=== PATIENT | female | born 1960 | race Caucasian/White ===

== ENCOUNTER → 2017-08-13 | Outpatient (REF) | payer SELFPAY ==
[2017-08-13 13:31] LABS: VITAMIN B12 LEVEL 443 PG/ML (247-911)
== END ==
LOC: M LAB REF 12:18
DX: D51.9 Vitamin B12 deficiency anemia, unspecified (principal)
CPT/HCPCS: 82607

== ENCOUNTER → 2018-07-31 | Outpatient (REF) | payer SELFPAY ==
[~2018-07-31] MED LIST: /PRAV20TA PO; ACET50TA PO; CIPR500T89 PO; COLA50CA3 PO; FLAG500T PO; LIPI20TA PO; MULTCAP PO; NORCOTAB PO; PERCOCET PO; SIMV20TA2 PO; TYLE167L PO; TYLE325T5 PO; VITA10002 PO; VITA10004 PO; VITA30004 PO; levothroid PO
[2018-07-31 13:07] LABS: C REACTIVE PROTEIN QUANTITATIV 0.3 MG/DL (0.00-0.30); URIC ACID 4.2 MG/DL (2.6-6.0)
== END ==
LOC: M LAB REF 12:06
PROVIDERS: ATTEND Nurse Practitioner Family
DX: M25.571 Pain in right ankle and joints of right foot (principal)

== ENCOUNTER 2020-09-22 15:16 | Inpatient (IN) | payer MEDICAID, SELFPAY ==
[~2020-09-22] VITALS: Ht 165.1 cm; Wt 109.3 kg
[~2020-09-22 15:16] MED LIST changes: -/PRAV20TA PO; -ACET50TA PO; +CYAN100049 PO; +MAPA500T17 PO; +PRAV1TAB39 PO; -VITA10002 PO
[2020-09-22] MEDS ORDERED: ACETAMINOPHEN 500 MG TAB PO ONE (16:50)
[2020-09-22] MEDS ORDERED: NS 1,000 ML IV ONE ×2 (16:50→21:55)
--- NOTE | 2020-09-22 17:19 | REP ---
INDICATION: Abdominal Pain. COMPARISON: 11/04/2013 the latest prior a portable exam FINDINGS: The superior mediastinal structures are midline. The cardiac silhouette is unremarkable in size, shape, and position. The diaphragmatic surfaces of the lungs are regular, and the costophrenic angles are clear. The pulmonary nieto are clear. The imaged osseous structures are intact. IMPRESSION: There is no acute cardiopulmonary disease. <Electronically signed by Markus Taylor > 09/22/20 [id number]
[2020-09-22 18:19] LABS: BASO # 0.1 10^3/uL (0.0-0.2); BASO % 0.4 % (0.0-1.0); EOS % 0.2 % (0.0-3.0); HEMATOCRIT 44.8 % (36.0-47.0); HEMOGLOBIN 14.4 g/dl (12.0-15.5); LYMPH # 1.3 10^3/uL (1.5-5.0); MEAN CORPUSCULAR HEMOGLOBIN 28.3 pg (27.0-33.0); MEAN CORPUSCULAR HGB CONC 32.1 g/dl (32.0-36.5); MONO # 1.4 10^3/uL (0.0-0.8); MONO % 5.6 % (2.0-8.0); NEUTROPHILS % 87.8 % (36.0-66.0); PLATELET COUNT, AUTOMATED 190 10^3/uL (150-450); RED BLOOD COUNT 5.09 10^6/uL (4.00-5.40); WHITE BLOOD COUNT 25.1 10^3/uL (4.0-10.0)
[2020-09-22 18:30] LABS: INR 1.06; PARTIAL THROMBOPLASTIN TIME 29.1 SECONDS (24.2-38.5)
[2020-09-22 18:33] LABS: D-DIMER QUANT 1801.26 ng/ml (<500)
[2020-09-22 18:53] LABS: ALBUMIN 3.3 GM/DL (3.2-5.2); ALT/SGPT 19 U/L (12-78); BILIRUBIN,DIRECT 0.4 MG/DL (0.0-0.2); BILIRUBIN,TOTAL 0.9 MG/DL (0.2-1.0); CK-MB VALUE MASS < 1.0 NG/ML (<3.6); CPK CREATINE PHOSPHOKINASE 124 U/L (26-192); FREE T4 1.82 NG/DL (0.76-1.46); LIPASE 47 U/L (73-393); MB/CK RELATIVE INDEX 0.81 (< OR =4); NT-PRO BNP 362 PG/ML (<125); THYROID STIMULATING HORMONE 0.448 uIU/ML (0.358-3.740); TOTAL PROTEIN 7.7 GM/DL (6.4-8.2); TROPONIN I < 0.02 NG/ML (< 0.10)
[2020-09-22] MEDS ORDERED: CIPROFLOXACIN 400 MG in IV 1 EA IV ONE (19:10)
[2020-09-22 19:34] LABS: BLOOD UREA NITROGEN 33 MG/DL (7-18); CALCIUM LEVEL 8.9 MG/DL (8.8-10.2); CARBON DIOXIDE LEVEL 27 MEQ/L (21-32); CHLORIDE LEVEL 101 MEQ/L (98-107); CREATININE FOR GFR 1.66 MG/DL (0.55-1.30); GLOMERULAR FILTRATION RATE 33.4 (>45); GLUCOSE, FASTING 143 MG/DL (70-100); POTASSIUM SERUM 4.1 MEQ/L (3.5-5.1); SODIUM LEVEL 136 MEQ/L (136-145)
[2020-09-22 20:18] LABS: RSV AMPLIFICATION NEGATIVE (NEGATIVE)
[2020-09-22] MEDS ORDERED: diphenhydrAMINE 50MG/ML VIAL (J1200) IV STA (20:25)
[2020-09-22] MEDS ORDERED: GLUCAGON INJ 1MG VIAL SC PRN (21:55)
[2020-09-22] MEDS ORDERED: MOM 30ML SUSPENSION UDC PO PRN (21:55)
[2020-09-22] MEDS ORDERED: cefTRIAXone SOD 1 GM in D5W MINI-BAG PLUS 50 ML IV ONE (21:55)
[2020-09-22] MEDS ORDERED: DEXTROSE 50% 50 ML SYRINGE IV PRN (21:55)
[2020-09-22] MEDS ORDERED: GLUCOSE 4GM CHEW TABLET PO PRN (21:55)
[2020-09-22] MEDS ORDERED: MAALOX 30 ML SUSP *UDC PO PRN (21:55)
[2020-09-22] MEDS ORDERED: MORPHINE 2 MG/ML 1ML VIAL (J2270) IV PRN (21:55)
[2020-09-22] MEDS ORDERED: ENOXAPARIN 40MG/0.4ML SYRINGE (J1650 PER 10MG) SC SCH (21:55)
--- NOTE | 2020-09-22 21:55 | REPVR ---
PROCEDURE INFORMATION: Exam: CT Abdomen And Pelvis Without Contrast Exam date and time: 09/22/2020 9:07 PM Age: 59 years old Clinical indication: Other: Hematuria TECHNIQUE: Imaging protocol: Computed tomography of the abdomen and pelvis without contrast. Radiation optimization: All CT scans at this facility use at least one of these dose optimization techniques: automated exposure control; mA and/or kV adjustment per patient size (includes targeted exams where dose is matched to clinical indication); or iterative reconstruction. COMPARISON: CT Abdomen with contrast 01/01/2014 2:30 PM FINDINGS: Lungs: Scattered subcentimeter noncalcified pulmonary parenchymal nodules measure up to 5 mm in the right lower lobe, stable. No follow-up suggested according to Fleischner guidelines. Liver: Examination of the liver demonstrates a lobular surface contour, and enlargement of the left and caudate lobes, findings consistent with cirrhosis. Gallbladder and bile ducts: There has been a cholecystectomy. There has been a cholecystectomy. Pancreas: Normal. No ductal dilation. Spleen: Top normal splenic size. Adrenal glands: Normal. No mass. Kidneys and ureters: Left perinephric and proximal periureteral inflammatory changes. Findings may indicate the presence of pyelonephritis or changes secondary to recent passage of a calculus. Mild left hydroureteronephrosis without definite obstructing calculus demonstrated. A small punctate calcification appears to be adjacent to the distal left ureter rather than within the ureteral lumen. Stomach and bowel: Unremarkable. No obstruction. No mucosal thickening. Appendix: No evidence of appendicitis. Intraperitoneal space: Unremarkable. No free air. No significant fluid collection. Vasculature: The aortoiliac vessels demonstrate mild atherosclerotic calcification. Lymph nodes: Unremarkable. No enlarged lymph nodes. Urinary bladder: Unremarkable as visualized. Reproductive: Unremarkable as visualized. Bones/joints: Moderate central spinal stenosis L2-L3, L3-L4 and moderate to severe central spinal stenosis L4-L5. The spine demonstrates moderate degenerative changes. Soft tissues: Unremarkable. IMPRESSION: 1. Examination of the liver demonstrates a lobular surface contour, and enlargement of the left and caudate lobes, findings consistent with cirrhosis. 2. There has been a cholecystectomy. 3. Left perinephric and proximal periureteral inflammatory changes. Findings may indicate the presence of pyelonephritis or changes secondary to recent passage of a calculus. Mild left hydroureteronephrosis without definite obstructing calculus demonstrated. A small punctate calcification appears to be adjacent to the distal left ureter rather than within the ureteral lumen. 4. There has been a cholecystectomy. Electronically signed by: Jay Frye On 09/22/2020 21:55:13 PM
[2020-09-22] MEDS ORDERED: SYNT100T PO (22:37)
[2020-09-22] MEDS ORDERED: SYNT88TA2 PO (22:37)
[2020-09-22] MEDS ORDERED: D 50CAP3 PO (22:37)
[2020-09-22] MEDS ORDERED: METF-839 PO (22:37)
[2020-09-22] MEDS ORDERED: CLON0.2T PO (22:37)
[2020-09-22] MEDS ORDERED: ATOR40TA75 PO (22:37)
--- NOTE | 2020-09-22 23:06 | HPEPDOC ---
[facility] Medical History & Physical Date of Admission Sep 22, 2020 Date of Service: Sep 22, 2020 Attending Physician: KAREN DICKINSON MD History and Physical CHIEF COMPLAINT: [59 y/o female c/o hematuria, sob x1 week] HISTORY OF PRESENT ILLNESS: [This is a 59 y/o female with a pmh of hld, gerd, h ypothyroidism, depression and niddm2 who presents to the ED with a cc of hematuria and increasing sob x 1 week. Patient states that she has had hematuria on and off for some time now but it would typically go away in a day or two. Patient states that this time, her hematuria is persisting and she is feeling very ill along with it. Patient is complaining of associated fever, chills, nausea, poor appetite, low back pain. Patient states that she sees luis red blood in the toilet and when she wipes after urinating. Patient states that she thought her symptoms were due to a cyst so she did not think much of them until now. Patient denies dysuria, vomiting, bloody or dark stool, constipation, jerman rrhea, abdominal pain. Patient admits to associated increasing shortness of breath. Patient states that this is worse with activity and states that if she were to stay seated or laying, that she would not become short of breath. Patient admits to one episode of associated chest pain that lasted a few minutes and spontaneously resolved yesterday. Patient is current pack per day smoker. Patient admits to associated cough with sputum, however does not know what her sputum looks like. Patient states that she was not worried about these symptoms, and just thought they were from her smoking. Patient denies hemoptysis, persistent chest pain, syncope, lightheadedness, dizziness. ] PAST MEDICAL HISTORY: 1. [See HPI PAST SURGICAL HISTORY: 1. [Tonsillectomy]. 2. [Cholecystectomy]. 3. [Colonoscopy 4. Tubal ligation]. SOCIAL HISTORY: Tobacco use:[Current pack per day smoker, approx 36 pack year hx] ETOH: [Denies] Illicit drug use: [Denies] FAMILY HISTORY: Reviewed with patient - none pertinent ALLERGIES: Please see below. REVIEW OF SYSTEMS: CONSTITUTIONAL: [See HPI]. HEENT: [Denies URI sx]. CARDIOVASCULAR: [See HPI]. RESPIRATORY: [See HPI]. GASTROINTESTINAL: [See HPI]. GENITOURINARY: [See HPI]. SKIN: [Denies rash]. MUSCULOSKELETAL: [Denies acute joint pain]. NEUROLOGICAL: [Denies paresthesias]. ENDOCRINE: [Hx of DM]. HEMATOLOGIC/LYMPHATIC: [Denies easy bruising]. HOME MEDICATIONS: Please see below. PHYSICAL EXAMINATION: VITAL SIGNS: See HPI GENERAL APPEARANCE: [This is an obese 59 year old female. She is lying in bed and appears uncomfortable. ]. HEENT: [No mass or lesion. EOMI. No scleral icterus or conjunctival erythema. Nares patent. oral mucosa dry without erythema.]. CARDIOVASCULAR: [Tachy rate, regular rhythm. No murmurs, rubs or gallops]. LUNGS: [Clear to auscultation b/l.]. ABDOMEN: [Soft, non-tender]. MUSCULOSKELETAL: [No joint deformity]. EXTREMITIES: [No peripheral edema noted. no overlying skin changes. Pulses intact.]. NEUROLOGICAL: [Speech clear. A+Ox3. No focal deficits.]. PSYCHIATRIC: [Mood and affect appear appropriate.]. LABORATORY DATA: See below. IMAGING: [Chest x-ray: FINDINGS: The superior mediastinal structures are midline. The cardiac silhouette is unremarkable in size, shape, and position. The diaphragmatic surfaces of the lungs are regular, and the costophrenic angles are clear. The pulmonary nieto are clear. The imaged osseous structures are intact. IMPRESSION: There is no acute cardiopulmonary disease. CT abd/pelvis: FINDINGS: Lungs: Scattered subcentimeter noncalcified pulmonary parenchymal nodules measure up to 5 mm in the right lower lobe, stable. No follow-up suggested according to Fleischner guidelines. Liver: Examination of the liver demonstrates a lobular surface contour, and enlargement of the left and caudate lobes, findings consistent with cirrhosis. Gallbladder and bile ducts: There has been a cholecystectomy. There has been a cholecystectomy. Pancreas: Normal. No ductal dilation. Spleen: Top normal splenic size. Adrenal glands: Normal. No mass. Kidneys and ureters: Left perinephric and proximal periureteral inflammatory changes. Findings may indicate the presence of pyelonephritis or changes secondary to recent passage of a calculus. Mild left hydroureteronephrosis without definite obstructing calculus demonstrated. A small punctate calcification appears to be adjacent to the distal left ureter rather than within the ureteral lumen. Stomach and bowel: Unremarkable. No obstruction. No mucosal thickening. Appendix: No evidence of appendicitis. Intraperitoneal space: Unremarkable. No free air. No significant fluid collection. Vasculature: The aortoiliac vessels demonstrate mild atherosclerotic calcification. Lymph nodes: Unremarkable. No enlarged lymph nodes. Urinary bladder: Unremarkable as visualized. Reproductive: Unremarkable as visualized. Bones/joints: Moderate central spinal stenosis L2-L3, L3-L4 and moderate to severe central spinal stenosis L4-L5. The spine demonstrates moderate degenerative changes. Soft tissues: Unremarkable. IMPRESSION: 1. Examination of the liver demonstrates a lobular surface contour, and enlargement of the left and caudate lobes, findings consistent with cirrhosis. 2. There has been a cholecystectomy. 3. Left perinephric and proximal periureteral inflammatory changes. Findings may indicate the presence of pyelonephritis or changes secondary to recent passage of a calculus. Mild left hydroureteronephrosis without definite obstructing calculus demonstrated. A small punctate calcification appears to be adjacent to the distal left ureter rather than within the ureteral lumen. 4. There has been a cholecystectomy. ] MICROBIOLOGY: Please see below. ASSESSMENT: [This is a 59 y/o female with a pmh of hld, gerd, hypothyroidism, depression and niddm2 who presents to the ED with complaints of hematuria, back pain and sob. Upon workup in the ED, patient found to have madeline with cr of 1.66 and bun of 33, pyuria and hematuria on ua, wbc of 25.[address] scan as stated above. Patient also found to have elevated d-dimer, raising some suspi cion for PE.]. . PLAN: 1. [Pyelo - CT scan showed some hydroureteronephrosis with no obvious blockage. There is a calcification present but does not seem to be obstructing. CT is suggestive of possible recent passage of stone, which would explain patient's hematuria prior to infection setting in. - Patient meets sepsis criteria with fever, tachycardia, leukocytosis, present source of infection - Patient received 1 dose of cipro and 1L ns bolus in the ED - Will begin maintenance fluids, meropenem 1g IV q12h - Will begin morphine 2mg iv for severe pain, tylenol for all other pain and fever - Dr. Westbrook, urology, was consulted and discussed the case with him. Suggests fluids, iv abx, keep npo overnight in case she needs a stent in the morning if symptoms do not improve and/or luis obstruction occurs - Admit to med surg for iv abx, fluids, pain control 2. MADELINE - Patient's cr is 1.66 from a baseline of under 1. Potentially pre-renal due to poor intake vs. post-renal due to recent obstruction or mixed picture - Fluids will be given, as stated - Will repeat bmp in the morning 3. SOB - According to well's score, patient is low risk group for pe. However, patient had elevated d-dimer in the setting of chronic smoking, shortness of breath, tachycardia, back pain. - Patient saturating well on room air - Will trend d-dimer - Day team should consider cta once kidney function improves - Anticoagulation will be held off for now due to hematuria and possible surgical intervention 4. DM - sliding scale insulin, hypoglycemic protocol 5. Hypothyroidism - continue levothyroxine 6. hyperlipidemia - continue statin 7. DVT prophylaxis - teds and scds]. Vital Signs Vital Signs Date Time Temp Pulse Resp B/P (MAP) Pulse Ox O2 Delivery O2 Flow Rate FiO2 09/22/20 19:00 100.7 09/22/20 17:00 09/22/20 15:17 115 20 94 Room Air Laboratory Data Labs 24H Laboratory Tests 2 09/22/20 17:12: Urine Color MIMA, Urine Appearance CLOUDYH, Urine pH 6.0, Urine Specific [place] 1.012, Urine Protein 2+H, Urine Glucose (UA) NEGATIVE, Urine Ketones NEGATIVE, Urine Blood 3+H, Urine Nitrite NEGATIVE, Urine Bilirubin NEGATIVE, Urine Urobilinogen 0.2, Urine Leukocyte Esterase 2+H, Urine WBC (Auto) TNTCH, Urine RBC (Auto) TNTCH, Urine Hyaline Casts (Auto) 0, Urine Bacteria (Auto) 2+H, Urine Squamous Epithelial Cells 0, Urine Sperm (Auto) 09/22/20 17:15: Prothrombin Time 14.0, Prothromb Time International Ratio 1.06, Activated Partial Thromboplast Time 29.1, D-Dimer, Quantitative 1801.26H 09/22/20 17:16: Immature Granulocyte % (Auto) 1.0, Neutrophils (%) (Auto) 87.8H, Lymphocytes (%) (Auto) 5.0L, Monocytes (%) (Auto) 5.6, Eosinophils (%) (Auto) 0.2, Basophils (%) (Auto) 0.4, Neutrophils # (Auto) 22.0H, Lymphocytes # (Auto) 1.3L, Monocytes # (Auto) 1.4H, Eosinophils # (Auto) 0.0, Basophils # (Auto) 0.1, Nucleated Red Blood Cells % (auto) 0.0, Anion Gap 8, Glomerular Filtration Rate 33.4L, Lactic Acid Level 1.6, Calcium Level 8.9, Total Bilirubin 0.9, Direct Bilirubin 0.4H, Aspartate Amino Transf (AST/SGOT) 17, Alanine Aminotransferase (ALT/SGPT) 19, Alkaline Phosphatase 119H, Total Creatine Kinase 124, Creatine Kinase MB < 1.0, Creatine Kinase MB Relative Index 0.81, Troponin I < 0.02, AM-Url-M-Type Natriuretic Peptide 362H, Total Protein 7.7, Albumin 3.3, Albumin/Globulin Ratio 0.8L, Lipase 47L, Thyroid Stimulating Hormone (TSH) 0.448, Free Thyroxine 1.82H 09/22/20 19:27: Coronavirus (COVID-19)(PCR) NEGATIVE, Influenza Type A (RT-PCR) NEGATIVE, Influenza Type B (RT-PCR) NEGATIVE, Respiratory Syncytial Virus (PCR) NEGATIVE 09/22/20 21:46: CBC/BMP Laboratory Tests 09/22/20 17:16 Microbiology Microbiology 09/22/20 Wet Prep - Final, Complete 09/22/20 Blood Culture, Received Pending 09/22/20 Blood Culture, Received Pending 09/22/20 Urine Culture, Received Pending Home Medications Scheduled Atorvastatin Calcium (Atorvastatin Calcium) 40 Mg Tablet, 40 MG PO DAILY Cholecalciferol (Vitamin D3) (Vitamin D3) 125 Mcg Capsule, 125 MCG PO DAILY Clonidine HCl (Clonidine HCl) 0.2 Mg Tablet, 0.2 MG PO BID Levothyroxine Sodium (Synthroid) 88 Mcg Tablet, 88 MCG PO DAILY TAKES WITH 100MCG FOR 188MCG TOTAL Levothyroxine Sodium (Synthroid) 100 Mcg Tablet, 100 MCG PO DAILY TAKES WIHT 88MCG FOR 188MCG TOTAL Metformin HCl (Metformin HCl) 500 Mg Tablet, 500 MG PO BID Allergies Coded Allergies: Penicillins (Verified Allergy, Severe, hives, 09/22/20) A-FIB/CHADSVASC A-FIB History Current/History of A-Fib/PAF?: No SADAF GARCIA Sep 22, 2020 23:06
--- NOTE | 2020-09-22 23:13 | ECGEPIP ---
[facility] - ED Test Date: 2020-09-22 Pat Name: SHIRA SINGH Department: Room: - Gender: Female [employer] Supervisor: HILARY : 1960 Requested By: CAS REEVES PA-C Order Number: [id number] Reading MD: Sukhjinder Hill Measurements Intervals [place] Rate: 101 P: 67 [place]: 150 QRS: -49 QRSD: 98 T: 95 QT: 340 QTc: 440 Interpretive Statements Sinus tachycardia Possible Left atrial enlargement Left anterior fascicular block INCOMPLETE RIGHT BUNDLE BRANCH BLOCK Left ventricular hypertrophy with repolarization abnormality ( R in aVL , Lloyd product ) NO PRIORS FOR COMPARISON Electronically Signed on 09-22-2020 23:13:21 EDT by Sukhjinder Hill
--- NOTE | 2020-09-22 23:25 | ECGEPIP ---
[facility] - ED Test Date: 2020-09-22 Pat Name: SHIRA SINGH Department: Room: - Gender: Female Computer Trainer: ALVAREZ : 1960 Requested By: FRANCA Genao Order Number: [id number] Reading MD: Sukhjinder Hill Measurements Intervals [place] Rate: 86 P: 65 GA: 154 QRS: -47 QRSD: 100 T: 83 QT: 398 QTc: 476 Interpretive Statements Normal sinus rhythm Incomplete right bundle branch block Left anterior fascicular block Left ventricular hypertrophy with repolarization abnormality ( R in aVL , Lloyd product , Romhilt-Lock ) SIMILAR TO PRIOR ON SAME DATE Electronically Signed on 09-22-2020 23:24:43 EDT by Sukhjinder Hill
[2020-09-22] MEDS: HumaLOG INSULIN (NovoLOG) PER UNIT SC SCH (23:30)
[2020-09-22] MEDS: ACETAMINOPHEN TAB 650MG DOSE (2X325MG) PO PRN (23:35)
[2020-09-22 23:46] VITALS: BP 145/81
[2020-09-23] MEDS ORDERED: MEROPENEM INJ 1 GM in IV 1 EA IV SCH ×2
[2020-09-23] MEDS: cloNIDine 0.2 MG TAB PO SCH ×3 (00:37→21:44)
[2020-09-23] MEDS: ACETAMINOPHEN TAB 650MG DOSE (2X325MG) PO PRN ×4 (03:44→21:53)
[2020-09-23] MEDS: LEVOTHYROXINE 100MCG TABLET (0.1MG) PO SCH (05:51)
[2020-09-23] MEDS: LEVOTHYROXINE 88MCG TABLET (0.088 MG) PO SCH (05:51)
[2020-09-23 06:00] VITALS: BP 115/68
[2020-09-23 06:28] LABS: HEMATOCRIT 38.4 % (36.0-47.0); MEAN CORPUSCULAR HEMOGLOBIN 28.2 pg (27.0-33.0); MEAN CORPUSCULAR HGB CONC 31.8 g/dl (32.0-36.5); MEAN CORPUSCULAR VOLUME 88.7 fl (80.0-96.0); PLATELET COUNT, AUTOMATED 160 10^3/uL (150-450); RED BLOOD COUNT 4.33 10^6/uL (4.00-5.40); WHITE BLOOD COUNT 20.4 10^3/uL (4.0-10.0)
[2020-09-23 06:38] LABS: HEMOGLOBIN 12.2 g/dl (12.0-15.5)
[2020-09-23 06:54] LABS: CALCIUM LEVEL 9.4 MG/DL (8.8-10.2); CREATININE FOR GFR 1.24 MG/DL (0.55-1.30); GLOMERULAR FILTRATION RATE 46.8 (>45); POTASSIUM SERUM 3.7 MEQ/L (3.5-5.1)
[2020-09-23] MEDS: DOCUSATE SODIUM 100MG CAPSULE PO SCH ×2 (08:15→21:41)
[2020-09-23] MEDS: ATORVASTATIN 20 MG TAB PO SCH (08:15)
[2020-09-23] MEDS: HumaLOG INSULIN (NovoLOG) PER UNIT SC SCH ×4 (08:16→21:00)
[2020-09-23 09:46] VITALS: BP 114/55
[2020-09-23 09:51] VITALS: BP 114/55
--- NOTE | 2020-09-23 10:58 | SMCUROLCON ---
Urology Consultation General Date of Consultation 09/23/20 Reason For Consultation This patient is seen for Chest Pain,Pyelonephritis. History of Present Illness This is a 59 y/o F w/ a PMH significant for HL, GERD, hypothyroidism, and DM2, admitted to the hospital for possible L pyelonephritis. The patient notes that she has been having worsening L flank pain, fevers, and gross hematuria for the past week. She denies dysuria or frequency. She feels that she has been emptying well. She denies blood clots. On presentation here, she has had fevers up to [address] A/P which I reviewed was notable for mild L perinephric stranding but I did not appreciate any hydro or ureteral s tones. Her UA was notable for TNTC WBCs and RBCs as well as 2+ bacteria. The patient notes that she does feel a little better since IV abx were started. Of note, the patient has had intermittent and milder gross hematuria for the last 6 months. When she had hematuria previously it was painless. She is a smoker and has smoked at least a pack/day for 40 yrs. Past Medical History Medical History see HPI Surgical Hstory tonsillectomy, multiple abd hernia repairs, D&C w/ tubal ligation Medications Current Medications Current Medications Medications (Trade) Dose Ordered Sig/Cameron Route PRN Reason Start Time Stop Time Status Last Admin Dose Admin Acetaminophen (Tylenol Tab) 650 mg Q4H PRN PO PAIN OR FEVER 09/22/20 21:55 09/23/20 08:34 Al Hydrox/Mg Hydrox/Simethicone (Mylanta) 30 ml DAILY PRN PO DYSPEPSIA 09/22/20 21:55 Atorvastatin Calcium (Lipitor) 40 mg DAILY PO 09/23/20 09:00 09/23/20 08:15 Clonidine HCl (Catapres) 0.2 mg BID PO 09/22/20 21:00 09/23/20 08:15 Dextrose (Dextrose 50%) 25 ml ASDIRECTED PRN IV SEE LABEL COMMENTS 09/22/20 21:55 Diphenhydramine HCl (Benadryl) 25 mg STAT STAT IV 09/22/20 20:25 09/22/20 20:26 DC 09/22/20 20:45 Docusate Sodium (Colace) 100 mg BID PO 09/23/20 09:00 09/23/20 08:15 Enoxaparin Sodium (Lovenox) 40 mg Q12H SC 09/22/20 21:55 UNV Glucagon (Glucagon) 1 mg ASDIRECTED PRN SC SEE LABEL COMMENTS 09/22/20 21:55 Glucose (Glucose) 16 GM ASDIRECTED PRN PO SEE LABEL COMMENTS 09/22/20 21:55 Home Med (Med Rec Complete!) ASDIRECTED XX 09/22/20 22:40 09/22/20 22:47 DC Insulin Human Lispro (HumaLOG INSULIN) SEE PROTOCOL TABLE AC SC 09/23/20 07:30 09/23/20 08:16 Insulin Human Lispro (HumaLOG INSULIN) SEE PROTOCOL TABLE QHS SC 09/22/20 21:00 Levothyroxine Sodium (Synthroid) 88 mcg DAILY@0600 PO 09/23/20 06:00 09/23/20 05:51 Levothyroxine Sodium (Synthroid) 100 mcg DAILY@0600 PO 09/23/20 06:00 09/23/20 05:51 Magnesium Hydroxide (Milk Of Magnesia) 30 ml DAILY PRN PO CONSTIPATION 09/22/20 21:55 Meropenem 1 gm/IV Miscellaneous Supplies 50 ml @ 100 mls/hr Q12H IV 09/23/20 00:00 09/23/20 00:37 Morphine Sulfate (Morphine Sulfate Inj) 2 mg Q6HP PRN IV severe pain 7-10 09/22/20 21:55 Allergies Allergies: Coded Allergies: Penicillins (Verified Allergy, Severe, hives, 09/22/20) Review of Systems Constitutional: Reports: Fever Skin: Denies: Rash, Lesions, Breakdown, Nail Changes Pulmonary: Denies: Dyspnea, Cough Cardiovascular: Denies Palpitations Gastrointestinal: Denies: Nausea, Vomiting Genitourinary: Reports: Hematuria; Denies: Dysuria, Frequency, Retention Musculoskeletal: Reports: Back Pain (L flank) Neurological: Denies: Weakness, Numbness, Incoordination, Change in Speech Psych: Reports: Mood Normal Physical Examination General Exam: Alert, Cooperative, No Acute Distress Chest Exam: Normal air movement Heart Exam: Rate Normal Abdomen Exam: BS Hypoactive, Soft; No: Tenderness Skin Exam: Nl turgor and temperature Neuro Exam: Normal Speech Psych Exam: Mental status NL, Mood NL Vital Signs/I&O Vital Signs Date Time Temp Pulse Resp B/P (MAP) Pulse Ox O2 Delivery O2 Flow Rate FiO2 09/23/20 09:51 99.8 89 12 114/55 91 Room Air I&O- Last 24 Hours up to 6 AM 09/23/20 06:00 Intake Total 2100 ml Output Total 0 ml Balance 2100 ml Laboratory Data 24H Labs Laboratory Tests 2 09/22/20 17:12: Urine Color MIMA, Urine Appearance CLOUDYH, Urine pH 6.0, Urine Specific [place] 1.012, Urine Protein 2+H, Urine Glucose (UA) NEGATIVE, Urine Ketones NEGATIVE, Urine Blood 3+H, Urine Nitrite NEGATIVE, Urine Bilirubin NEGATIVE, Urine Urobilinogen 0.2, Urine Leukocyte Esterase 2+H, Urine WBC (Auto) TNTCH, Urine RBC (Auto) TNTCH, Urine Hyaline Casts (Auto) 0, Urine Bacteria (Auto) 2+H, Urine Squamous Epithelial Cells 0, Urine Sperm (Auto) 09/22/20 17:15: Prothrombin Time 14.0, Prothromb Time International Ratio 1.06, Activated Partial Thromboplast Time 29.1, D-Dimer, Quantitative 1801.26H 09/22/20 17:16: Immature Granulocyte % (Auto) 1.0, Neutrophils (%) (Auto) 87.8H, Lymphocytes (%) (Auto) 5.0L, Monocytes (%) (Auto) 5.6, Eosinophils (%) (Auto) 0.2, Basophils (%) (Auto) 0.4, Neutrophils # (Auto) 22.0H, Lymphocytes # (Auto) 1.3L, Monocytes # (Auto) 1.4H, Eosinophils # (Auto) 0.0, Basophils # (Auto) 0.1, Nucleated Red Blood Cells % (auto) 0.0, Anion Gap 8, Glomerular Filtration Rate 33.4L, Lactic Acid Level 1.6, Calcium Level 8.9, Total Bilirubin 0.9, Direct Bilirubin 0.4H, Aspartate Amino Transf (AST/SGOT) 17, Alanine Aminotransferase (ALT/SGPT) 19, Alkaline Phosphatase 119H, Total Creatine Kinase 124, Creatine Kinase MB < 1.0, Creatine Kinase MB Relative Index 0.81, Troponin I < 0.02, TP-Lch-Z-Type Natriur etic Peptide 362H, Total Protein 7.7, Albumin 3.3, Albumin/Globulin Ratio 0.8L, Lipase 47L, Thyroid Stimulating Hormone (TSH) 0.448, Free Thyroxine 1.82H 09/22/20 19:27: Coronavirus (COVID-19)(PCR) NEGATIVE, Influenza Type A (RT-PCR) NEGATIVE, Influenza Type B (RT-PCR) NEGATIVE, Respiratory Syncytial Virus (PCR) NEGATIVE 09/22/20 21:46: Troponin I < 0.02 09/22/20 23:33: Bedside Glucose (Misc Panel) 133H 09/23/20 06:05: Nucleated Red Blood Cells % (auto) 0.0, D-Dimer, Quantitative 1788.94H, Anion Gap 6L, Glomerular Filtration Rate 46.8, Calcium Level 9.4, Magnesium Level 2.0 CBC/BMP Laboratory Tests 09/22/20 17:16 09/23/20 06:05 Microbiology Microbiology 09/22/20 Wet Prep - Final, Complete 09/22/20 Blood Culture, Received Pending 09/22/20 Blood Culture, Received Pending 09/22/20 Urine Culture, Received Pending Assessment This is a 59 y/o F admitted for likely pyelonephritis. There does not appear to be any obstruction to her urinary tract based on CT. Her hematuria is likely related to the pyelonephritis, but she could also have an underlying bladder mass given she has had intermittent painless hematuria for a few months. No urologic intervention is required at this time as her hematuria is mild and there is no obstruction. I would recommend a cystoscopy on an outpatient basis. Plan - treat pyelonephritis w/ broad spectrum abx and adjust based on cultures - suspect the hematuria will improve some w/ abx - would recommend outpatient cystoscopy to evaluate the gross hematuria - will have my office arrange this DEYSI CHOW MD Sep 23, 2020 10:57
[2020-09-23] MEDS: MEROPENEM INJ 1 GM in IV 1 EA IV SCH ×2 (13:11→21:45)
--- NOTE | 2020-09-23 13:32 | IPNPDOC ---
Text Note Date of Service The patient was seen on 09/23/20. NOTE SUBJECTIVE: -Seen by urology, no clinically significant hydro, no interventions indicated, to treat pyelo and sepsis -No acute complaints OBJECTIVE: VITAL SIGNS: See below GENERAL APPEARANCE: NAD, obese HEENT:NCAT, EOMI, MMM CARDIOVASCULAR: RRR, no m/r/g LUNGS: Clear to auscultation b/l. ABDOMEN: Obese, normoactive sounds, soft, non distended, nontender EXTREMITIES: No peripheral edema noted. no overlying skin changes. Pulses intact. NEUROLOGICAL: Speech clear. A+Ox3. No focal deficits. PSYCHIATRIC: AOx3, Mood and affect appear appropriate LABORATORY DATA: reviewed WBC 20.4 Hgb 12.2 Platelets 160 Na 137 K 3.7 Cr 1.24 IMAGING: [Chest x-ray: FINDINGS: The superior mediastinal structures are midline. The cardiac silhouette is unremarkable in size, shape, and position. The diaphragmatic surfaces of the lungs are regular, and the costophrenic angles are clear. The pulmonary nieto are clear. The imaged osseous structures are intact. IMPRESSION: There is no acute cardiopulmonary disease. CT abd/pelvis: FINDINGS: Lungs: Scattered subcentimeter noncalcified pulmonary parenchymal nodules measure up to 5 mm in the right lower lobe, stable. No follow-up suggested according to Fleischner guidelines. Liver: Examination of the liver demonstrates a lobular surface contour, and enlargement of the left and caudate lobes, findings consistent with cirrhosis. Gallbladder and bile ducts: There has been a cholecystectomy. There has been a cholecystectomy. Pancreas: Normal. No ductal dilation. Spleen: Top normal splenic size. Adrenal glands: Normal. No mass. Kidneys and ureters: Left perinephric and proximal periureteral inflammatory changes. Findings may indicate the presence of pyelonephritis or changes secondary to recent passage of a calculus. Mild left hydroureteronephrosis without definite obstructing calculus demonstrated. A small punctate calcification appears to be adjacent to the distal left ureter rather than within the ureteral lumen. Stomach and bowel: Unremarkable. No obstruction. No mucosal thickening. Appendix: No evidence of appendicitis. Intraperitoneal space: Unremarkable. No free air. No significant fluid collection. Vasculature: The aortoiliac vessels demonstrate mild atherosclerotic calcification. Lymph nodes: Unremarkable. No enlarged lymph nodes. Urinary bladder: Unremarkable as visualized. Reproductive: Unremarkable as visualized. Bones/joints: Moderate central spinal stenosis L2-L3, L3-L4 and moderate to severe central spinal stenosis L4-L5. The spine demonstrates moderate degenerative changes. Soft tissues: Unremarkable. IMPRESSION: 1. Examination of the liver demonstrates a lobular surface contour, and enlargement of the left and caudate lobes, findings consistent with cirrhosis. 2. There has been a cholecystectomy. 3. Left perinephric and proximal periureteral inflammatory changes. Findings may indicate the presence of pyelonephritis or changes secondary to recent passage of a calculus. Mild left hydroureteronephrosis without definite obstructing calculus demonstrated. A small punctate calcification appears to be adjacent to the distal left ureter rather than within the ureteral lumen. 4. There has been a cholecystectomy. ] MICROBIOLOGY: Please see below. ASSESSMENT: 59 y/o W with hld, gerd, hypothyroidism, depression and niddm2 who presents to the ED with complaints of hematuria, back pain and sob and admitted for sepsis 2/2 pyelonephritis, madeline and potential clot with elevated d-dimer, raising some suspicion for PE. PLAN: Sepsis 2/2 Pyelonephritis - CT scan showed mild hydroureteronephrosis with no obvious blockage. Seen by urology, no clinically significant hydro, no interventions indicated, to treat pyelo and sepsis. To follow however with urology in the outpatient setting for longer standing hematuria over a few months now per history. -Got cipro in ED then switched to meropenem, not sure why. Will continue merem for now with plan to de-escalate as soon as cultures indicate. -morphine 2mg iv for severe pain, tylenol mild pain and fever 2. MADELINE: likely multifoctorial i/s/o sepsis: improving with hydration -daily BMP -strict I/Os and daily weights -avoid nephrotoxins -IVF 3. SOB - According to well's score, patient is low risk group for pe. However, patient had elevated d-dimer in the setting of chronic smoking, shortness of breath, tachycardia, back pain. - Patient saturating well on room air - f/u LE doppler scans to r/o DVT, and will order V/Q scan - Anticoagulation will be held off for now 4. DM - sliding scale insulin, hypoglycemic protocol 5. Hypothyroidism - continue levothyroxine 6. hyperlipidemia - continue statin 7. DVT prophylaxis - teds and scds VS,Fishbone, I+O VS, Fishdustin I+O Laboratory Tests 09/22/20 17:16 09/23/20 06:05 Vital Signs Date Time Temp Pulse Resp B/P (MAP) Pulse Ox O2 Delivery O2 Flow Rate FiO2 09/23/20 09:51 99.8 89 12 114/55 91 Room Air I&O- Last 24 Hours up to 6 AM 09/23/20 05:59 Intake Total 2100 ml Output Total 0 ml Balance 2100 ml YAQUELIN BROOKE MD Sep 23, 2020 10:07
[2020-09-23 14:00] VITALS: BP 117/67
--- NOTE | 2020-09-23 14:58 | REP ---
INDICATION: SOB with elevated DDimer with MADELINE, r/o PE. COMPARISON: Comparison is made with chest x-ray 22 September 2020.. TECHNIQUE: 1.0 mCi of technetium 99m DTPA aerosol is utilized for the ventilation study and is followed by a 5.0 mCi dose of intravenous technetium 99m MAA for the perfusion study. A sequence of 8 planar images are acquired for each portion of the study. FINDINGS: There is some central bronchial deposition of inspired tracer from the ventilation study bilaterally. Ventilatory uptake is otherwise homogeneous. Perfusion distribution is fairly homogeneous as well. There is a matched perfusion defect in the right lower lobe region. No mismatch defect is seen. IMPRESSION: Low probability scan for pulmonary embolus. <Electronically signed by Gianni Plascencia > 09/23/20 [id number]
--- NOTE | 2020-09-23 18:48 | REP ---
INDICATION: r/o dvt COMPARISON: None. TECHNIQUE: Real time compression and duplex Doppler interrogation of the bilateral lower extremity deep venous system is performed. FINDINGS: Bilaterally, the common femoral, superficial femoral and popliteal veins are fully compressible with transducer pressure and demonstrate normal spontaneous and phasic flow, without evidence of deep venous thrombosis. IMPRESSION: No evidence of deep venous thrombosis of the bilateral lower extremity femoral popliteal venous system. <Electronically signed by Sheldon Hyman > 09/23/20 [id number]
[2020-09-23 19:57] VITALS: BP 107/57
[2020-09-23 22:00] VITALS: BP 135/74
[2020-09-24] MEDS: MEROPENEM INJ 1 GM in IV 1 EA IV SCH (04:50)
[2020-09-24] MEDS: LEVOTHYROXINE 100MCG TABLET (0.1MG) PO SCH (05:39)
[2020-09-24] MEDS: LEVOTHYROXINE 88MCG TABLET (0.088 MG) PO SCH (05:39)
[2020-09-24 06:38] VITALS: BP 122/72
[2020-09-24 06:55] LABS: HEMATOCRIT 38.2 % (36.0-47.0); HEMOGLOBIN 12.3 g/dl (12.0-15.5); MEAN CORPUSCULAR HEMOGLOBIN 28.3 pg (27.0-33.0); MEAN CORPUSCULAR HGB CONC 32.2 g/dl (32.0-36.5); PLATELET COUNT, AUTOMATED 168 10^3/uL (150-450); RED BLOOD COUNT 4.34 10^6/uL (4.00-5.40); WHITE BLOOD COUNT 15.7 10^3/uL (4.0-10.0)
[2020-09-24 07:23] LABS: BLOOD UREA NITROGEN 27 MG/DL (7-18); CALCIUM LEVEL 9.3 MG/DL (8.8-10.2); CARBON DIOXIDE LEVEL 28 MEQ/L (21-32); CHLORIDE LEVEL 104 MEQ/L (98-107); CREATININE FOR GFR 0.96 MG/DL (0.55-1.30); GLOMERULAR FILTRATION RATE > 60.0 (>45); GLUCOSE, FASTING 140 MG/DL (70-100); MAGNESIUM LEVEL 2.2 MG/DL (1.8-2.4); POTASSIUM SERUM 3.4 MEQ/L (3.5-5.1); SODIUM LEVEL 138 MEQ/L (136-145)
[2020-09-24] MEDS: cloNIDine 0.2 MG TAB PO SCH ×2 (09:00→21:07)
[2020-09-24] MEDS: DOCUSATE SODIUM 100MG CAPSULE PO SCH ×2 (09:16→21:00)
[2020-09-24] MEDS: ACETAMINOPHEN TAB 650MG DOSE (2X325MG) PO PRN (09:16)
[2020-09-24] MEDS: ATORVASTATIN 20 MG TAB PO SCH (09:16)
[2020-09-24] MEDS: HumaLOG INSULIN (NovoLOG) PER UNIT SC SCH ×4 (09:17→21:00)
--- NOTE | 2020-09-24 12:19 | IPNPDOC ---
Text Note Date of Service The patient was seen on 09/24/20. NOTE SUBJECTIVE: -Febrile overnight, otherwise no other complaints OBJECTIVE: VITAL SIGNS: See below GENERAL APPEARANCE: NAD, obese HEENT:NCAT, EOMI, MMM CARDIOVASCULAR: RRR, no m/r/g LUNGS: Clear to auscultation b/l. ABDOMEN: Obese, normoactive sounds, soft, non distended, nontender EXTREMITIES: No peripheral edema noted. no overlying skin changes. Pulses intact. NEUROLOGICAL: Speech clear. A+Ox3. No focal deficits. PSYCHIATRIC: AOx3, Mood and affect appear appropriate LABORATORY DATA: reviewed WBC 15.7 Hgb 12.3 Platelets 168 Na 138 K 3.4 (repleted) Cr 0.96 IMAGING: [Chest x-ray: FINDINGS: The superior mediastinal structures are midline. The cardiac silhouette is unremarkable in size, shape, and position. The diaphragmatic surfaces of the lungs are regular, and the costophrenic angles are clear. The pulmonary nieto are clear. The imaged osseous structures are intact. IMPRESSION: There is no acute cardiopulmonary disease. CT abd/pelvis: FINDINGS: Lungs: Scattered subcentimeter noncalcified pulmonary parenchymal nodules measure up to 5 mm in the right lower lobe, stable. No follow-up suggested according to Fleischner guidelines. Liver: Examination of the liver demonstrates a lobular surface contour, and enlargement of the left and caudate lobes, findings consistent with cirrhosis. Gallbladder and bile ducts: There has been a cholecystectomy. There has been a cholecystectomy. Pancreas: Normal. No ductal dilation. Spleen: Top normal splenic size. Adrenal glands: Normal. No mass. Kidneys and ureters: Left perinephric and proximal periureteral inflammatory changes. Findings may indicate the presence of pyelonephritis or changes secondary to recent passage of a calculus. Mild left hydroureteronephrosis without definite obstructing calculus demonstrated. A small punctate calcification appears to be adjacent to the distal left ureter rather than within the ureteral lumen. Stomach and bowel: Unremarkable. No obstruction. No mucosal thickening. Appendix: No evidence of appendicitis. Intraperitoneal space: Unremarkable. No free air. No significant fluid collection. Vasculature: The aortoiliac vessels demonstrate mild atherosclerotic calcification. Lymph nodes: Unremarkable. No enlarged lymph nodes. Urinary bladder: Unremarkable as visualized. Reproductive: Unremarkable as visualized. Bones/joints: Moderate central spinal stenosis L2-L3, L3-L4 and moderate to severe central spinal stenosis L4-L5. The spine demonstrates moderate degenerative changes. Soft tissues: Unremarkable. IMPRESSION: 1. Examination of the liver demonstrates a lobular surface contour, and enlargement of the left and caudate lobes, findings consistent with cirrhosis. 2. There has been a cholecystectomy. 3. Left perinephric and proximal periureteral inflammatory changes. Findings may indicate the presence of pyelonephritis or changes secondary to recent passage of a calculus. Mild left hydroureteronephrosis without definite obstructing calculus demonstrated. A small punctate calcification appears to be adjacent to the distal left ureter rather than within the ureteral lumen. 4. There has been a cholecystectomy. ] MICROBIOLOGY: Please see below. UCx - PCN resistant Klebs ASSESSMENT: 59 y/o W with hld, gerd, hypothyroidism, depression and niddm2 who presents to the ED with complaints of hematuria, back pain and sob and admitted for sepsis 2/2 pyelonephritis, madeline and noted persistently elevated d-dimer and fever. PLAN: Sepsis 2/2 Klebs Pyelonephritis - CT scan showed mild hydroureteronephrosis with no obvious blockage. Seen by urology, no clinically significant hydro, no interventions indicated, to treat pyelo and sepsis. To follow however with urology in the outpatient setting for longer standing hematuria over a few months now per history. -Swith meropenem to cipro per sensitivities. Day 3 of abx 2. MADELINE: likely multifoctorial i/s/o sepsis: Resolved with hydration -daily BMP -strict I/Os and daily weights -avoid nephrotoxins -s/p IVF 3. SOB, fever, elevated DDimer with negative V/O scan and LE DVT US scans -recheck covid-19 - Patient saturating well on room air - Full anticoagulation will be held off for now 4. DM - sliding scale insulin, hypoglycemic protocol 5. Hypothyroidism - continue levothyroxine 6. hyperlipidemia - continue statin 7. DVT prophylaxis - teds and scds VS,Fishbone, I+O VS, Fishbone, I+O Laboratory Tests 09/24/20 06:40 Vital Signs Date Time Temp Pulse Resp B/P (MAP) Pulse Ox O2 Delivery O2 Flow Rate FiO2 09/24/20 06:38 98.0 72 16 122/72 (89) 96 Room Air I&O- Last 24 Hours up to 6 AM 09/24/20 06:00 Intake Total 1650 ml Output Total 1475 ml Balance 175 ml YAQUELIN BROOKE MD Sep 24, 2020 09:34
[2020-09-24] MEDS: CIPROFLOXACIN 400 MG in IV 1 EA IV SCH ×2 (12:59→21:04)
[2020-09-24 14:00] VITALS: BP 117/67
[2020-09-24] MEDS ORDERED: PERCOCET 5MG/325MG TAB PO PRN ×2 (16:45)
[2020-09-24 20:08] VITALS: BP 167/83
[2020-09-24 22:17] VITALS: BP 132/72
[2020-09-25] MEDS: LEVOTHYROXINE 100MCG TABLET (0.1MG) PO SCH (05:11)
[2020-09-25] MEDS: LEVOTHYROXINE 88MCG TABLET (0.088 MG) PO SCH (05:11)
[2020-09-25 05:15] VITALS: BP 131/71
[2020-09-25] MEDS ORDERED: CIPROFLOXACIN 500MG TABLET PO SCH (06:00)
[2020-09-25 06:38] LABS: HEMATOCRIT 36.9 % (36.0-47.0); HEMOGLOBIN 11.8 g/dl (12.0-15.5); MEAN CORPUSCULAR HEMOGLOBIN 27.8 pg (27.0-33.0); PLATELET COUNT, AUTOMATED 196 10^3/uL (150-450); RED BLOOD COUNT 4.24 10^6/uL (4.00-5.40); WHITE BLOOD COUNT 12.6 10^3/uL (4.0-10.0)
[2020-09-25 06:39] LABS: BLOOD UREA NITROGEN 22 MG/DL (7-18); CALCIUM LEVEL 8.4 MG/DL (8.8-10.2); CARBON DIOXIDE LEVEL 27 MEQ/L (21-32); CHLORIDE LEVEL 103 MEQ/L (98-107); CREATININE FOR GFR 0.82 MG/DL (0.55-1.30); GLOMERULAR FILTRATION RATE > 60.0 (>45); GLUCOSE, FASTING 131 MG/DL (70-100); POTASSIUM SERUM 3.1 MEQ/L (3.5-5.1); SODIUM LEVEL 138 MEQ/L (136-145)
[2020-09-25] MEDS: HumaLOG INSULIN (NovoLOG) PER UNIT SC SCH (07:32)
[2020-09-25] MEDS: DOCUSATE SODIUM 100MG CAPSULE PO SCH (09:00)
[2020-09-25] MEDS: ATORVASTATIN 20 MG TAB PO SCH (09:10)
[2020-09-25 09:14] VITALS: BP 129/71
[2020-09-25] MEDS: cloNIDine 0.2 MG TAB PO SCH (09:14)
[2020-09-25] MEDS ORDERED: CIPR-249 PO (09:17)
[2020-09-25] MEDS ORDERED: POTASSIUM CHLORIDE 10 MEQ SR TABLET PO ONE (09:45)
--- NOTE | 2020-09-25 09:45 | DS.PDOC ---
Discharge Summary General Date of Admission Sep 23, 2020 at 10:08 Date of Discharge 09/25/2020 Attending Physician: YAQUELIN BROOKE MD Discharge Summary PROCEDURES PERFORMED DURING STAY: None ADMITTING DIAGNOSES: Pyelonephritis Sepsis Hematuria DISCHARGE DIAGNOSES: Klesbiella pyelonephritis Sepsis Hematuria Morbid obesity COMPLICATIONS/CHIEF COMPLAINT: Chest Pain,Pyelonephritis. HISTORY OF PRESENT ILLNESS: 59 y/o W with a pmh of hld, gerd, hypothyroidism, depression, morbid obesity, chronic active smoker and niddm2 who presents to the ED with a cc of hematuria and increasing sob x 1 week. She reported that she has had hematuria on and off for some time now but it would typically go away in a day or two but this time, her hematuria persisted and she felt very ill along with it. She reported associated fever, chills, nausea, poor appetite and low back pain. She otherwise denied luis dysuria, vomiting, bloody or dark stool, constipation, diarrhea, abdominal pain. HOSPITAL COURSE: In the ED she was breathing comfortably on room air but was febrile and found to have a leukocytosis with turbid grossly positive urine and CT A/P showed evidence of active pyelonephritis with possible mild hydronephrosis that was evaluated by urology and deemed not clinically significant but recommended medicine admission for treatment of severe pyelonephritis. He did recommend outpatient follow up with him for the chronic intermittent hematuria as it appears to be a chronic seperate process from the current infection in this lady who is smoker and would warrant further investigation. She was later diagnosed with Klebsiella pyelonephritis and initially was placed on meropenem and later de-escalated to ciprofloxacin with resolution of sepsis. She is now being disc harged home to complete 10d more days of antibiotics and will follow up in urology clinic within 2w. Of note, Ms. Manuel also had an MADELINE that resolved with hydration and incidentally had a noted elevated D-dimer for which lower extremity doppler US were done to follow up and were negative for potential DVT and a V/Q scan was performed as she could not tolerate contrast at the time i/s/o an MADELINE and it showed a low probability for a PE. She was tested for covid- 19 twice and was negative both times as well. She remained stable on room air without hypoxemia, fevers resolved with antibiotic treatment and she is now being discharged home where she will have close PCP follow up for the likely inflammatory driven DDimer elevation in the setting of a severe urinary tract infection. DISCHARGE MEDICATIONS: Please see below. ALLERGIES: Please see below. PHYSICAL EXAMINATION ON DISCHARGE: VITAL SIGNS: Please see below. GENERAL APPEARANCE: NAD, obese HEENT:NCAT, EOMI, MMM CARDIOVASCULAR: RRR, no m/r/g LUNGS: Clear to auscultation b/l. ABDOMEN: Obese, normoactive sounds, soft, non distended, nontender EXTREMITIES: No peripheral edema noted. no overlying skin changes. Pulses intact. NEUROLOGICAL: Speech clear. A+Ox3. No focal deficits. PSYCHIATRIC: AOx3, Mood and affect appear appropriate LABORATORY DATA: Please see below. IMAGING: Chest x-ray: FINDINGS: The superior mediastinal structures are midline. The cardiac silhouette is unremarkable in size, shape, and position. The diaphragmatic surfaces of the lungs are regular, and the costophrenic angles are clear. The pulmonary nieto are clear. The imaged osseous structures are intact. IMPRESSION: There is no acute cardiopulmonary disease. CT abd/pelvis: FINDINGS: Lungs: Scattered subcentimeter noncalcified pulmonary parenchymal nodules measure up to 5 mm in the right lower lobe, stable. No follow-up suggested according to Fleischner guidelines. Liver: Examination of the liver demonstrates a lobular surface contour, and enlargement of the left and caudate lobes, findings consistent with cirrhosis. Gallbladder and bile ducts: There has been a cholecystectomy. There has been a cholecystectomy. Pancreas: Normal. No ductal dilation. Spleen: Top normal splenic size. Adrenal glands: Normal. No mass. Kidneys and ureters: Left perinephric and proximal periureteral inflammatory changes. Findings may indicate the presence of pyelonephritis or changes secondary to recent passage of a calculus. Mild left hydroureteronephrosis without definite obstructing calculus demonstrated. A small punctate calcification appears to be adjacent to the distal left ureter rather than within the ureteral lumen. Stomach and bowel: Unremarkable. No obstruction. No mucosal thickening. Appendix: No evidence of appendicitis. Intraperitoneal space: Unremarkable. No free air. No significant fluid collection. Vasculature: The aortoiliac vessels demonstrate mild atherosclerotic calcification. Lymph nodes: Unremarkable. No enlarged lymph nodes. Urinary bladder: Unremarkable as visualized. Reproductive: Unremarkable as visualized. Bones/joints: Moderate central spinal stenosis L2-L3, L3-L4 and moderate to severe central spinal stenosis L4-L5. The spine demonstrates moderate degenerative changes. Soft tissues: Unremarkable. IMPRESSION: 1. Examination of the liver demonstrates a lobular surface contour, and enlargement of the left and caudate lobes, findings consistent with cirrhosis. 2. There has been a cholecystectomy. 3. Left perinephric and proximal periureteral inflammatory changes. Findings may indicate the presence of pyelonephritis or changes secondary to recent passage of a calculus. Mild left hydroureteronephrosis without definite obstructing calculus demonstrated. A small punctate calcification appears to be adjacent to the distal left ureter rather than within the ureteral lumen. 4. There has been a cholecystectomy. ] V/Q scan: 1.0 mCi of technetium 99m DTPA aerosol is utilized for the ventilation study and is followed by a 5.0 mCi dose of intravenous technetium 99m MAA for the perfusion study. A sequence of 8 planar images are acquired for each portion of the study. FINDINGS: There is some central bronchial deposition of inspired tracer from the ventilation study bilaterally. Ventilatory uptake is otherwise homogeneous. Perfusion distribution is fairly homogeneous as well. There is a matched perfusion defect in the right lower lobe region. No mismatch defect is seen. IMPRESSION: Low probability scan for pulmonary embolus. LE doppler US: Real time compression and duplex Doppler interrogation of the bilateral lower extremity deep venous system is performed. FINDINGS: Bilaterally, the common femoral, superficial femoral and popliteal veins are fully compressible with transducer pressure and demonstrate normal spontaneous and phasic flow, without evidence of deep venous thrombosis. IMPRESSION: No evidence of deep venous thrombosis of the bilateral lower extremity femoral popliteal venous system. PROGNOSIS: Good ACTIVITY: As tolerated. DIET: Regular DISCHARGE PLAN: Home with 10d of cipro for pyelonephritis DISPOSITION: Home DISCHARGE INSTRUCTIONS: Home with 10d of cipro for pyelonephritis, PCP within 1w, and urology within 2w ITEMS TO FOLLOWUP ON ON OUTPATIENT: Pyelonephritis resolution -PCP DDimer elevation - PCP Hematuria - Urology DISCHARGE CONDITION: Stable TIME SPENT ON DISCHARGE: 45 minutes. Vital Signs/I&Os Vital Signs Date Time Temp Pulse Resp B/P (MAP) Pulse Ox O2 Delivery O2 Flow Rate FiO2 09/25/20 05:15 99.0 70 18 131/71 (91) 95 Room Air 09/24/20 22:13 1.0 I&O- Last 24 Hours up to 6 AM 09/25/20 06:00 Intake Total 2400 ml Output Total 1650 ml Balance 750 ml Laboratory Data Labs 24H Laboratory Tests 2 09/24/20 09:13: Coronavirus (COVID-19)(PCR) NEGATIVE 09/24/20 11:17: Bedside Glucose (Misc Panel) 91 09/24/20 16:19: Bedside Glucose (Misc Panel) 152H 09/24/20 20:05: Bedside Glucose (Misc Panel) 197H 09/25/20 05:54: Nucleated Red Blood Cells % (auto) 0.0, D-Dimer, Quantitative 3054.70H, Anion Gap 8, Glomerular Filtration Rate > 60.0, Calcium Level 8.4L, Magnesium Level 2.0 CBC/BMP Laboratory Tests 09/25/20 05:54 FSBS Laboratory Tests Test 09/24/20 11:17 09/24/20 16:19 09/24/20 20:05 Range/Units Bedside Glucose (Misc Panel) 91 152 197 80-115 MG/DL Microbiology Microbiology 09/22/20 Wet Prep - Final, Complete 09/22/20 Blood Culture - Preliminary, Resulted No Growth after 48 hours. All Specime... 09/22/20 Blood Culture - Preliminary, Resulted No Growth after 48 hours. All Specime... 09/22/20 Urine Culture - Final, Complete Klebsiella Pneumoniae Discharge Medications Scheduled Atorvastatin Calcium (Atorvastatin Calcium) 40 Mg Tablet, 40 MG PO DAILY, (Reported) Cholecalciferol (Vitamin D3) (Vitamin D3) 125 Mcg Capsule, 125 MCG PO DAILY, (Reported) Ciprofloxacin HCl (Cipro) 500 Mg Tablet, 500 MG PO BID@06,18 Clonidine HCl (Clonidine HCl) 0.2 Mg Tablet, 0.2 MG PO BID, (Reported) Levothyroxine Sodium (Synthroid) 88 Mcg Tablet, 88 MCG PO DAILY, (Reported) TAKES WITH 100MCG FOR 188MCG TOTAL Levothyroxine Sodium (Synthroid) 100 Mcg Tablet, 100 MCG PO DAILY, (Reported) TAKES WIHT 88MCG FOR 188MCG TOTAL Metformin HCl (Metformin HCl) 500 Mg Tablet, 500 MG PO BID, (Reported) Allergies Coded Allergies: Penicillins (Verified Allergy, Severe, hives, 09/22/20) YAQUELIN BROOKE MD September 25, 2020 09:12
== END 2020-09-25 10:50 | disposition home or self-care (01) | DRG 720 ==
LOC: M ED 15:16 → M ED INP 15:17 → ENRESERV 23:23 → M MS5PR 23:50 → OBSVTOIN 09-23 10:08
PROVIDERS: ADMIT Family Medicine; ATTEND Internal Medicine
DX: A41.9 Sepsis, unspecified organism (principal); N17.9 Acute kidney failure, unspecified; E11.65 Type 2 diabetes mellitus with hyperglycemia; Z68.41 Body mass index [BMI] 40.0-44.9, adult; E66.01 Morbid (severe) obesity due to excess calories; N10 Acute pyelonephritis; F31.9 Bipolar disorder, unspecified; E78.5 Hyperlipidemia, unspecified; K21.9 Gastro-esophageal reflux disease without esophagitis; E03.9 Hypothyroidism, unspecified; F17.210 Nicotine dependence, cigarettes, uncomplicated; R06.02 Shortness of breath; R50.9 Fever, unspecified; Z90.49 Acquired absence of other specified parts of digestive tract; Z20.822 Contact with and (suspected) exposure to COVID-19; Z79.84 Long term (current) use of oral hypoglycemic drugs; Z88.0 Allergy status to penicillin; B96.1 Klebsiella pneumoniae [K. pneumoniae] as the cause of diseases classified elsewhere; R65.20 Severe sepsis without septic shock

== ENCOUNTER → 2020-10-05 | Outpatient (REF) | payer MEDICAID ==
[~2020-10-05] MED LIST changes: +ATOR40TA75 PO; +CIPR-249 PO; +CLON0.2T PO; +D 50CAP3 PO; +METF-839 PO; +SYNT100T PO; +SYNT88TA2 PO
[2020-10-05 18:06] LABS: HEPATITIS A ANTIBODY IGM NEGATIVE (NEGATIVE); HEPATITIS B CORE ANTIBODY IGM NEGATIVE (NEGATIVE); HEPATITIS B SURFACE ANTIGEN NEGATIVE (NEGATIVE)
== END ==
LOC: M LAB REF 16:12
PROVIDERS: ATTEND Nurse Practitioner Adult Health
DX: N17.9 Acute kidney failure, unspecified (principal); K74.60 Unspecified cirrhosis of liver

== ENCOUNTER → 2020-10-18 | Outpatient (CLI) | payer MEDICAID ==
--- NOTE | 2020-10-18 09:44 | REP ---
INDICATION: CIRRHOSIS ABN IMAGING COMPARISON: None. TECHNIQUE: Real time palmer scale ultrasound examination using curved array transducer. FINDINGS: Liver is enlarged and demonstrates fatty infiltration measuring 20 cm in craniocaudal length. No focal hepatic lesion identified. Pancreas is incompletely evaluated due to interposed bowel gas but visualized portions appear normal. Prior cholecystectomy. Common bile duct is upper limits of normal at 8 mm diameter. The right kidney is normal in reniform shape without hydronephrosis and measures 10.8 x 5.7 x 4.7 cm. No ascites. IMPRESSION: Hepatomegaly and hepatosteatosis. No focal hepatic lesion identified. <Electronically signed by Brandon Chavez > 10/18/20 0943
== END ==
LOC: M RAD 09:06
PROVIDERS: ATTEND Nurse Practitioner Adult Health
DX: R16.0 Hepatomegaly, not elsewhere classified (principal); K76.0 Fatty (change of) liver, not elsewhere classified; K74.60 Unspecified cirrhosis of liver

== ENCOUNTER → 2021-01-13 | Outpatient (REF) | payer MEDICAID, OTHER ==
[2021-01-13 14:37] LABS: APPEARANCE, URINE MANUAL CLOUDY (CLEAR); COLOR, URINE MANUAL BROWN (YELLOW); GLUCOSE, URINE (UA) MANUAL NEGATIVE (NEGATIVE); PROTEIN, URINE MANUAL 3+ mg/dL (NEGATIVE); SPECIFIC GRAVITY,URINE MANUAL 1.015 (1.002-1.035)
[2021-01-13 14:38] LABS: BILIRUBIN, URINE MANUAL OBSCURED (NEGATIVE); BLOOD URINE MANUAL POSITIVE (NEGATIVE); KETONE, URINE MANUAL NEGATIVE (NEGATIVE); LEUKOCYTE ESTERASE, URINE MAN OBSCURED (NEGATIVE); NITRITE, URINE MANUAL OBSCURED (NEGATIVE); UROBILINOGEN, URINE MANUAL OBSCURED mg/dl (NORMAL)
[2021-01-13 14:41] LABS: BACTERIA, URINE LARGE AMOUNT; HYALINE CAST, URINE NONE SEEN /lpf (0-1); RBC, URINE TNTC /hpf (0-3); SQUAMOUS EPITHELIAL CELL URINE NONE SEEN /hpf (SMALL AMT)
== END ==
LOC: M SMT 13:19
PROVIDERS: ATTEND Urology
DX: R31.0 Gross hematuria (principal)

== ENCOUNTER → 2021-06-14 | Outpatient (REF) | payer OTHER ==
[2021-06-14 18:30] LABS: APPEARANCE, URINE CLOUDY (CLEAR); BACTERIA, URINE AUTO 2+ (NEGATIVE); BILIRUBIN, URINE AUTO NEGATIVE (NEGATIVE); BLOOD, URINE BLOOD 3+ (NEGATIVE); COLOR, URINE AMBER (YELLOW); GLUCOSE, URINE (UA) AUTO NEGATIVE (NEGATIVE); KETONE, URINE AUTO NEGATIVE (NEGATIVE); LEUKOCYTE ESTERASE, URINE AUTO NEGATIVE (NEGATIVE); MUCUS, URINE MODERATE (NEGATIVE); NITRITE, URINE AUTO POSITIVE (NEGATIVE); PROTEIN, URINE AUTO 2+ mg/dL (NEGATIVE); RBC, URINE AUTO TNTC /HPF (0-3); SPECIFIC GRAVITY URINE AUTO 1.017 (1.002-1.035); SQUAMOUS EPITHELIAL CELL UR AU 1 /HPF (0-6); UROBILINOGEN, URINE AUTO 0.2 mg/dL (0.0-2.0); WBC, URINE AUTO 13 /HPF (0-3)
== END ==
LOC: M SMT 17:11
PROVIDERS: ATTEND Urology
DX: N39.0 Urinary tract infection, site not specified (principal)

== ENCOUNTER → 2022-05-18 | Outpatient (REF) | payer OTHER ==
[2022-05-18 19:30] LABS: APPEARANCE, URINE MANUAL HAZY (CLEAR); COLOR, URINE MANUAL YELLOW (YELLOW)
[2022-05-18 19:37] LABS: GLUCOSE, URINE (UA) MANUAL NEGATIVE (NEGATIVE); PROTEIN, URINE MANUAL NEGATIVE (NEGATIVE)
[2022-05-18 19:38] LABS: BILIRUBIN, URINE MANUAL NEGATIVE (NEGATIVE); BLOOD URINE MANUAL POSITIVE (NEGATIVE); KETONE, URINE MANUAL NEGATIVE (NEGATIVE); LEUKOCYTE ESTERASE, URINE MAN POSITIVE (NEGATIVE); NITRITE, URINE MANUAL POSITIVE (NEGATIVE); UROBILINOGEN, URINE MANUAL NORMAL (NORMAL)
[2022-05-18 20:02] LABS: WBC, URINE 20-30 /hpf (0-3)
[2022-05-18 20:03] LABS: BACTERIA, URINE LARGE AMOUNT; HYALINE CAST, URINE NONE SEEN /lpf (0-1); RBC, URINE 30-40 /hpf (0-3); SQUAMOUS EPITHELIAL CELL URINE NONE SEEN /hpf (SMALL AMT)
== END ==
LOC: M SMT 17:01
PROVIDERS: ATTEND Urology
DX: N39.0 Urinary tract infection, site not specified (principal)

== ENCOUNTER → 2022-05-30 | Outpatient (REF) | payer OTHER | LOC: M SMT 17:11 | PROVIDERS: ATTEND Urology | DX: N39.0 Urinary tract infection, site not specified (principal) ==

== ENCOUNTER 2022-07-21 11:21 | Emergency (ER) | payer OTHER ==
[~2022-07-21] VITALS: Ht 165.1 cm; Wt 114.0 kg
[2022-07-21] MEDS ORDERED: KETOROLAC 30 MG/ML 1ML VIAL IV ONE (12:25)
[2022-07-21] MEDS ORDERED: NS 1,000 ML IV ONE (12:25)
[2022-07-21] MEDS ORDERED: ACETAMINOPHEN 1000MG 100ML IV BAG IV ONE (12:25)
[2022-07-21] MEDS ORDERED: cefTRIAXone SOD 1 GM in D5W MINI-BAG PLUS 50 ML IV ONE (12:25)
[2022-07-21 12:51] LABS: APPEARANCE, URINE CLOUDY (CLEAR); BACTERIA, URINE AUTO 1+ (NEGATIVE); BILIRUBIN, URINE AUTO NEGATIVE (NEGATIVE); BLOOD, URINE BLOOD 2+ (NEGATIVE); COLOR, URINE YELLOW (YELLOW); GLUCOSE, URINE (UA) AUTO NEGATIVE (NEGATIVE); KETONE, URINE AUTO NEGATIVE (NEGATIVE); LEUKOCYTE ESTERASE, URINE AUTO 3+ (NEGATIVE); MUCUS, URINE SMALL (NEGATIVE); NITRITE, URINE AUTO POSITIVE (NEGATIVE); PROTEIN, URINE AUTO 1+ mg/dL (NEGATIVE); RBC, URINE AUTO 7 /HPF (0-3); SPECIFIC GRAVITY URINE AUTO 1.013 (1.002-1.035); SQUAMOUS EPITHELIAL CELL UR AU 1 /HPF (0-6); UROBILINOGEN, URINE AUTO 0.2 mg/dL (0.0-2.0); WBC, URINE AUTO TNTC /HPF (0-3)
[2022-07-21 13:11] LABS: BASO # 0.1 10^3/uL (0.0-0.2); BASO % 0.3 % (0.0-1.0); EOS % 0.2 % (0.0-3.0); HEMATOCRIT 45.2 % (36.0-47.0); HEMOGLOBIN 14.5 g/dl (12.0-15.5); LYMPH % 13.4 % (24.0-44.0); MEAN CORPUSCULAR HEMOGLOBIN 28.6 pg (27.0-33.0); MEAN CORPUSCULAR HGB CONC 32.1 g/dl (32.0-36.5); MEAN CORPUSCULAR VOLUME 89.2 fl (80.0-96.0); MONO % 10.4 % (2.0-8.0); NEUTROPHILS # 11.4 10^3/uL (1.5-8.5); NEUTROPHILS % 75.2 % (36.0-66.0); PLATELET COUNT, AUTOMATED 223 10^3/uL (150-450); RED BLOOD COUNT 5.07 10^6/uL (4.00-5.40); WHITE BLOOD COUNT 15.2 10^3/uL (4.0-10.0)
[2022-07-21 13:37] LABS: BLOOD UREA NITROGEN 17 MG/DL (9-23); CALCIUM LEVEL 8.7 MG/DL (8.3-10.6); CARBON DIOXIDE LEVEL 29 MMOL/L (20-31); CHLORIDE LEVEL 104 MMOL/L (98-107); CREATININE FOR GFR 0.81 MG/DL (0.55-1.30); GLOMERULAR FILTRATION RATE > 60.0 (>45); GLUCOSE, FASTING 154 MG/DL (74-106); POTASSIUM SERUM 4.7 MMOL/L (3.5-5.1); SODIUM LEVEL 139 MMOL/L (136-145)
[2022-07-21 13:47] LABS: MONO # 1.6 10^3/uL (0.0-0.8)
[2022-07-21 14:57] VITALS: BP 121/56
[2022-07-21] MEDS ORDERED: CIPR-249 PO (15:12)
[2022-07-21] MEDS ORDERED: ONDA4TAB6 PO (15:12)
[2022-07-21] MEDS ORDERED: DIFL150T PO (15:15)
== END 2022-07-21 15:49 | disposition home or self-care (01) ==
LOC: M ED 11:21
DX: N10 Acute pyelonephritis (principal); R82.79 Other abnormal findings on microbiological examination of urine; E66.9 Obesity, unspecified; E11.9 Type 2 diabetes mellitus without complications; I10 Essential (primary) hypertension; E03.9 Hypothyroidism, unspecified; F32.9 Major depressive disorder, single episode, unspecified; Z90.49 Acquired absence of other specified parts of digestive tract; F17.200 Nicotine dependence, unspecified, uncomplicated; Z79.84 Long term (current) use of oral hypoglycemic drugs; Z79.890 Hormone replacement therapy; Z79.899 Other long term (current) drug therapy; Z88.0 Allergy status to penicillin
CPT/HCPCS: 74176; 80048; 81001; 83605; 85025; 87088; 87186; 96374; 96375; 99284; J0131; J0696; J1885

== ENCOUNTER → 2022-08-04 | Outpatient (REF) | payer OTHER ==
[~2022-08-04] MED LIST changes: +DIFL150T PO; +ONDA4TAB6 PO
== END ==
LOC: M SMT 16:56
PROVIDERS: ATTEND Urology
DX: N39.0 Urinary tract infection, site not specified (principal)

== ENCOUNTER → 2022-11-07 | Outpatient (CLI) | payer OTHER | LOC: M EKG 15:43 | PROVIDERS: ATTEND Physician Assistant Medical | DX: R00.2 Palpitations (principal) ==

== ENCOUNTER → 2023-07-09 | Outpatient (CLI) | payer OTHER ==
[2023-07-09 13:09] LABS: BLOOD UREA NITROGEN 13 MG/DL (9-23); CALCIUM LEVEL 9.1 MG/DL (8.3-10.6); CARBON DIOXIDE LEVEL 30 MMOL/L (20-31); CHLORIDE LEVEL 109 MMOL/L (98-107); CREATININE FOR GFR 0.65 MG/DL (0.55-1.30); GLOMERULAR FILTRATION RATE > 60.0 (>45); GLUCOSE, FASTING 95 MG/DL (74-106); POTASSIUM SERUM 4.1 MMOL/L (3.5-5.1); SODIUM LEVEL 142 MMOL/L (136-145)
== END ==
LOC: M LAB 12:04
PROVIDERS: ATTEND Nurse Practitioner Family
DX: R31.0 Gross hematuria (principal)

== ENCOUNTER → 2023-07-11 | Outpatient (CLI) | payer OTHER ==
[~2023-07-11] MED LIST changes: +ISOVUE-370 76% 100ML VIAL As Ordered ONE
== END ==
LOC: M RAD 14:39
PROVIDERS: ATTEND Nurse Practitioner Family
DX: R31.0 Gross hematuria (principal)
CPT/HCPCS: 74178; Q9967

== ENCOUNTER → 2023-08-31 | Outpatient (CLI) | payer OTHER | LOC: M RAD 14:03 | PROVIDERS: ATTEND Nurse Practitioner Adult Health | DX: R91.8 Other nonspecific abnormal finding of lung field (principal) | CPT/HCPCS: 71260; Q9967 ==

== ENCOUNTER → 2024-05-05 | Outpatient (CLI) | payer OTHER ==
[~2024-05-05] MED LIST changes: -ISOVUE-370 76% 100ML VIAL As Ordered ONE; +ONDA-282 PO; -ONDA4TAB6 PO
== END ==
LOC: M WUC 10:52
PROVIDERS: ATTEND Physician Assistant Medical
DX: M25.512 Pain in left shoulder (principal)